=== PATIENT | male | born 1950 | race Caucasian/White ===

== ENCOUNTER 2019-03-03 15:13 | Inpatient (IN) | payer BC, OTHER ==
--- NOTE | 2019-03-03 16:12 | PDOC ---
History of Present Illness - General Chief Complaint: Difficulty with Vision Stated Complaint: BLURRY VISION Time Seen by Provider: 03/03/19 15:54 History Source: Patient Exam Limitations: No Limitations - History of Present Illness Initial Comments: 03/03/19 16:40 68 yo M with no past medical history presents to the emergency department with inability to move left eye for the past 3 days. Per the patient, he was struck in the head by a single plywood on 02/21/2019 while working in the yard on the right side. The patient 3 days ago had atraumatic sudden onset of diplopia and inability to move his left eye inward on horizontal gaze. Denies pain. Denies the following: fevers, chills, SOB, chest pain, visual changes, headaches, ears/ nose/throat pain, abdominal pain, dysuria, hematuria, and leg pain/swelling. allergies: NKDA meds: none tPA Exclusion checklist 3-4.5h - Time Elapsed Date last known well: 02/28/19 Time last known well: 12:00 Elaspsed time: 4 Day(s) and 23 Hour(s) and 1 Minutes - Thrombolytic Therapy Candidate Is patient eligible for thrombolytic therapy: No - Exclusion Criteria 3-4.5 hr SBP greater than 185 or DBP greater than 110mmHg despite tx: No Recent IC/spinal surgery,head trauma or stroke<3mos.: No Hx IC hemorrhage, IC neoplasm, AV malformation or aneurysm: No Active internal bleeding: No Blding diathesis(low plt ct, inc PTT,INR>1.7 or use of NOAC): No Symptoms suggest subarachnoid hemorrhage: No CT demonstrates multilobar infarct(>1/3 cerebral hemiphere): No Arterial puncture at noncompressible site in previous 7 days: No Blood glucose concentration less than 50mg/dL (2.7mmol/L): No - Relative Exclusion Criteria 3-4.5 hr Life expectancy <1 yr or severe co-morbid illness: No : No Patient/family refused: No Rapid improvement: No Stroke severity too mild: Yes Recent acute WI (w/in previous 3 months): No Seizure at onset with postictal residual neuro impairments: No Major surgery or serious trauma w/in previous 14 days: No Recent GI or hemorrhage (w/in previous 21 days): No - Add'l Relative Exclusion 3-4.5 hr Age > 80: No Hx of both diabetes AND prior ischemic stroke: No Taking an oral anticoagulant regardless of INR: No NIHSS >25: No - Ineligibility reason(s) Reasons No tPA given: Outside of window - delayed arrival NIH Stroke Scale - Last Known Well Date/Time & Onset Date Last Known Well: 02/28/19 Time Last Known Well: 12:00 - Initial Evaluation Level of consciousness: Alert Ask patient the month and their age: Answers both correctly Ask patient to open & close eyes; make fist and let go: Obeys both correctly Best gaze (horizontal eye movement): Partial gaze palsy Visual field testing: No visual field loss Facial paresis (Show teeth/raise eyebrows/close eyes tight): Normal symmetrical movement Motor Function: Left Arm: Normal Motor Function: Right Arm: Normal (extends arm 90 (or 45) degrees for 10 seconds without drift Motor Function: Left Leg: Normal (extends leg 30 degrees for 5 seconds without drift) Motor Function: Right Leg: Normal (extends leg 30 degrees for 5 seconds without drift) Limb Ataxia: No ataxia Sensory(Use pinprick test arms,legs,trunk,face/side to side): Normal Best language (Describe picture, name items, read sentences): No Aphasia Dysarthria (read several words): Normal articulation Extinction and Inattention: No abnormality - Total Score NIH Stroke Scale Score: 1 Past History - Past Medical History Allergies/Adverse Reactions: Allergies Allergy/AdvReac Type Severity Reaction Status Date / Time No Known Allergies Allergy Verified 03/03/19 15:21 Home Medications: Ambulatory Orders Aspirin Coated [Ecotrin -] 81 mg PO DAILY #30 tablet.ec 03/04/19 Atorvastatin Ca [Lipitor] 40 mg PO HS #30 tablet 03/04/19 Lancets 1 each MC BID #100 each 03/04/19 Miscellaneous Medical Supply [Glucometer Device] 1 each SQ ASDIR #1 kit Miscellaneous Medical Supply [Glucometer Test Strips #100] 1 each SQ ASDIR #1 box 03/04/19 Sitagliptin Phosphate [Januvia -] 25 mg PO DAILY@0700 #30 tab 03/04/19 metFORMIN HCL [Glucophage -] 500 mg PO BID@0700,1630 #60 tablet 03/04/19 COPD: No - Psycho Social/Smoking Cessation Hx Smoking History: Never smoked Review of Systems - Review of Systems Able to Perform ROS?: Yes Is the patient limited Indonesian proficient: No Constitutional: No: Chills, Diaphoresis, Fever, Weakness HEENTM: Yes: Recent change in vision, Double Vision. No: Eye Pain, Blurred Vision, Tearing, Cataracts, Ear Pain, Ocular Prothesis, Ear Discharge, Nose Pain , Nose Congestion, Throat Pain, Mouth Pain Respiratory: No: Cough, Shortness of Breath, Hemoptysis Cardiac (ROS): No: Chest Pain, Lightheadedness, Palpitations ABD/GI: No: Constipated, Diarrhea, Nausea, Rectal Bleeding, Vomiting, Tarry Stools : No: Dysuria, Hematuria Musculoskeletal: No: Back Pain, Joint Pain, Neck Pain Integumentary: No: Bruising, Erythema, Rash Neurological: No: Headache, Numbness, Tingling, Tremors, Unsteady Gait, Ataxia Psychiatric: No: Change in Appetite Endocrine: No: Unexplained Weight Gain Hematologic/Lymphatic: No: Anemia *Physical Exam - Vital Signs Last Vital Signs Temp Pulse Resp BP Pulse Ox 98.1 F 111 H 22 H 139/79 98 03/03/19 15:22 03/03/19 15:22 03/03/19 15:22 03/03/19 15:22 03/03/19 15:40 - Physical Exam General Appearance: Yes: Nourished, Appropriately Dressed. No: Apparent Distress, Intoxicated HEENT: positive: NAIMA, Normal ENT Inspection, Normal Voice, Symmetrical, TMs Normal, Pharynx Normal, Hearing Grossly Normal. negative: EOMI (unable to adduct left eye past midline. left eye rests abducted and down. ), Pale Conjunctivae, Scleral Icterus (R), Scleral Icterus (L), Muffled/Hoarse voice, Pharyngeal Erythema, Tonsillar Exudate, Tonsillar Erythema, Nasal Congestion, Rhinorrhea, Excessive drooling Neck: positive: Trachea midline, Supple. negative: Tender, Lymphadenopathy (R) , Lymphadenopathy (L), Tender lateral, Tender midline Respiratory/Chest: positive: Lungs Clear, Normal Breath Sounds. negative: Chest Tender, Respiratory Distress, Accessory Muscle Use, Rhonchi, Stridor, Wheezing Cardiovascular: positive: Regular Rhythm, S1, S2, Tachycardia. negative: Systolic Murmur Gastrointestinal/Abdominal: positive: Normal Bowel Sounds, Flat, Soft. negative : Tender Lymphatic: negative: Adenopathy Musculoskeletal: positive: Normal Inspection. negative: CVA Tenderness, Vertebral Tenderness Extremity: positive: Normal Capillary Refill, Normal Inspection, Normal Range of Motion. negative: Tender, Swelling, Calf Tenderness Integumentary: positive: Normal Color, Dry, Warm. negative: Swelling, Ecchymosis Neurologic: positive: Fully Oriented, Alert, Normal Mood/Affect, Normal Response , Motor Strength 5/5, EOM Palsy. negative: director of research II-XII NML intact (reference comments above. CN1,2, 4-12 grossly intact), Facial Droop, Sensory Deficit ED Treatment Course - LABORATORY CBC & Chemistry Diagram: 03/04/19 06:38 03/04/19 06:38 Medical Decision Making - Medical Decision Making 68 yo M with no past medical history presents to the emergency department with inability to move left eye for the past 3 days. Initial vitals: Initial Vital Signs Temp Pulse Resp BP Pulse Ox 98.1 F 111 H 22 H 139/79 98 03/03/19 15:22 03/03/19 15:22 03/03/19 15:22 03/03/19 15:22 03/03/19 15:22 Work up: CVA work up. Suspect cranial 3 nerve palsy based on physical examination. Will order CT head to rule out hemorrhagic infarct. Etiologies include cerebral infarct, midbrain infarct, diabetic ischemic lesion (denies hx of DM), aneuysm development. I spoke to Dr. Angulo and he recommends MRA and MRI of the brain. Patient to receive CVA work up for labs. Laboratory Tests 03/03/19 03/03/19 03/03/19 16:27 16:27 16:27 WBC 9.0 RBC 5.75 H Hgb 16.7 Hct 49.1 H MCV 85.4 MCH 29.1 MCHC 34.0 RDW 13.0 Plt Count 312 MPV 9.3 Absolute Neuts (auto) 5.3 Neutrophils % 58.5 Lymphocytes % 33.0 Monocytes % 7.0 Eosinophils % 1.0 Basophils % 0.5 Nucleated RBC % 0 PT with INR 10.80 INR 0.92 PTT (Actin FS) 30.5 Sodium Potassium Chloride Carbon Dioxide Anion Gap BUN Creatinine Est GFR (CKD-EPI)AfAm Est GFR (CKD-EPI)NonAf Random Glucose Calcium Total Bilirubin AST ALT Alkaline Phosphatase Creatine Kinase 71 Troponin I < 0.02 Total Protein Albumin Triglycerides 424 H Cholesterol Total LDL Cholesterol 194 H HDL Cholesterol 03/03/19 03/03/19 16:27 16:27 WBC RBC Hgb Hct MCV MCH MCHC RDW Plt Count MPV Absolute Neuts (auto) Neutrophils % Lymphocytes % Monocytes % Eosinophils % Basophils % Nucleated RBC % PT with INR INR PTT (Actin FS) Sodium 136 Potassium 3.8 Chloride 100 Carbon Dioxide 27 Anion Gap 10 BUN 16.0 Creatinine 1.4 H Est GFR (CKD-EPI)AfAm 60.25 Est GFR (CKD-EPI)NonAf 51.99 Random Glucose 404 H* Calcium 9.5 Total Bilirubin 0.4 AST 17 ALT 30 Alkaline Phosphatase 142 H Creatine Kinase Troponin I Total Protein 7.5 Albumin 3.8 Triglycerides Cholesterol 291 H Total LDL Cholesterol HDL Cholesterol 39 L Patient was signed out to Dr. Boyce for further work up and management. Pending MRI and MRA of brain CT head was negative for acute intracranial processes. Discharge - Discharge Information Problems reviewed: Yes Clinical Impression/Diagnosis: WCIHO (acute kidney injury), Hyperglycemia, CN III palsy, left eye - Follow up/Referral - Patient Discharge Instructions - Post Discharge Activity
[2019-03-03] MEDS ORDERED: SODIUM CHLORIDE 1,000 ML IV SCH ×2 (16:30→21:20)
[2019-03-03 16:50] LABS: BASO % 0.5 % (0-2.0); HEMATOCRIT 49.1 % (35.4-49); HEMOGLOBIN 16.7 GM/dL (11.7-16.9); MCH 29.1 pg (25.7-33.7); MEAN CELL VOLUME 85.4 fl (80-96); MEAN PLT VOLUME 9.3 fl (7.5-11.1); NEUT % 58.5 % (42.8-82.8); PLATELET COUNT 312 K/MM3 (134-434); RBC 5.75 M/mm3 (4.00-5.60)
[2019-03-03 17:05] LABS: INR 0.92 (0.83-1.09); PROTHROMBIN TIME (PATIENT) 10.8 SEC (9.7-13.0)
[2019-03-03 17:07] LABS: ACTIVATED PTT 30.5 SECONDS (25.2-36.5)
--- NOTE | 2019-03-03 17:23 | PDOC ---
Attending Attestation - Resident Resident Name: MichealRonn - ED Attending Attestation I have performed the following: I have examined & evaluated the patient, The case was reviewed & discussed with the resident, I agree w/resident's findings & plan, Exceptions are as noted - HPI HPI: 03/03/19 16:46 Mr. Stearns is a 68 yo M who presents ambulatory to the ER with his due to visual changes Per patient he has no past medical history and takes no medications The patients history began on Feb 21 when he was cleaning the back yard His right face/eye was struck by a piece of falling plywood. He had no visual complaints at that time Three days ago, pt began noting diplopia and "stars in his vision" Because his symptoms Pt denies headache No focal weakness or numbness - Physicial Exam PE: 03/03/19 17:23 GENERAL: The patient is in no acute distress. ENT: Ears normal, nares patent, oropharynx clear without exudates. Moist mucous membranes. NECK: Normal range of motion, supple LUNGS: Breath sounds equal, clear to auscultation bilaterally. No wheezes, and no crackles. HEART:Regular rate and rhythm, normal S1 and S2 without murmur, rub or gallop. ABDOMEN: Soft, nontender, normoactive bowel sounds. EXTREMITIES: Normal range of motion, no edema. NEUROLOGICAL: Cranial nerves II through XII grossly intact. Normal speech. No focal neurological deficits. Left eye: Ptosis, externally deviated, SKIN: Warm, Dry, normal turgor, no rashes or lesions noted. - Medical Decision Making 03/03/19 17:25 Laboratory Tests 03/03/19 03/03/19 16:27 16:27 WBC 9.0 Hgb 16.7 Hct 49.1 H Plt Count 312 INR 0.[address] Merritt Will do stroke work-up We will plan to admit Signed out to overnight attending
[2019-03-03 17:27] LABS: LDL CHOLESTEROL (ONLY SJRH) 194 mg/dL (5-100); TRIGLYCERIDES 424 mg/dL (0-150)
[2019-03-03 17:32] LABS: ALBUMIN 3.8 g/dl (3.4-5.0); BILIRUBIN,TOTAL 0.4 mg/dL (0.2-1); CALCIUM 9.5 mg/dL (8.5-10.1); CREATININE 1.4 mg/dL (0.55-1.3); POTASSIUM 3.8 mmol/L (3.5-5.1); TOT PROT 7.5 g/dl (6.4-8.2)
[2019-03-03] MEDS ORDERED: SODIUM CHLORIDE 1,000 ML IV STA (18:55)
[2019-03-03] MEDS ORDERED: ASPIRIN 81 MG CHEWABLE TABLETS PO ONE (19:07)
--- NOTE | 2019-03-03 20:02 | PDOC ---
*Physical Exam - Vital Signs Last Vital Signs Temp Pulse Resp BP Pulse Ox 98.1 F 110 H 18 128/66 100 03/03/19 15:22 03/03/19 17:40 03/03/19 17:40 03/03/19 17:40 03/03/19 17:40 - Physical Exam General Appearance: Yes: Nourished, Appropriately Dressed. No: Apparent Distress HEENT: positive: NAIMA, Normal ENT Inspection, Normal Voice, TMs Normal. negative: EOMI Neck: positive: Supple Respiratory/Chest: positive: Lungs Clear, Normal Breath Sounds Cardiovascular: positive: Regular Rhythm, S1, S2, Tachycardia Vascular Pulses: Dorsalis-Pedis (R): 2+, Doralis-Pedis (L): 2+ Gastrointestinal/Abdominal: positive: Soft Rectal Exam: positive: deferred Lymphatic: negative: Adenopathy Musculoskeletal: positive: Normal Inspection. negative: CVA Tenderness Extremity: positive: Normal Capillary Refill, Normal Inspection, Normal Range of Motion Integumentary: positive: Normal Color, Dry, Warm Neurologic: positive: Fully Oriented, Alert, Normal Mood/Affect, Normal Response , Motor Strength 5/5, Abnormal Cranial NS (CN 3 in left eye), EOM Palsy. 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 NML intact, Facial Droop, Numbness, Sensory Deficit, Finger to Nose, Confused, Disoriented, Depressed Affect, Babinski, Other ED Treatment Course - LABORATORY CBC & Chemistry Diagram: 03/03/19 16:27 03/03/19 16:27 - ADDITIONAL ORDERS Additional order review: Laboratory Results 03/03/19 03/03/19 03/03/19 16:27 16:27 16:27 PT with INR INR PTT (Actin FS) Sodium 136 Potassium 3.8 Chloride 100 Carbon Dioxide 27 Anion Gap 10 BUN 16.0 Creatinine 1.4 H Est GFR (CKD-EPI)AfAm 60.25 Est GFR (CKD-EPI)NonAf 51.99 Random Glucose 404 H* Calcium 9.5 Total Bilirubin 0.4 AST 17 ALT 30 Alkaline Phosphatase 142 H Creatine Kinase 71 Troponin I < 0.02 Total Protein 7.5 Albumin 3.8 Triglycerides 424 H Cholesterol 291 H Total LDL Cholesterol 194 H HDL Cholesterol 39 L 03/03/19 16:27 PT with INR 10.80 INR 0.92 PTT (Actin FS) 30.5 Sodium Potassium Chloride Carbon Dioxide Anion Gap BUN Creatinine Est GFR (CKD-EPI)AfAm Est GFR (CKD-EPI)NonAf Random Glucose Calcium Total Bilirubin AST ALT Alkaline Phosphatase Creatine Kinase Troponin I Total Protein Albumin Triglycerides Cholesterol Total LDL Cholesterol HDL Cholesterol 03/03/19 16:27 RBC 5.75 H MCV 85.4 MCHC 34.0 RDW 13.0 MPV 9.3 Neutrophils % 58.5 Lymphocytes % 33.0 Monocytes % 7.0 Eosinophils % 1.0 Basophils % 0.5 - RADIOLOGY Radiograph Interpretation: MRI: THIS IS A PRELIMINARY REPORT FROM [facility] DATE OF SERVICE: 2019-03-03 18:36:58 IMAGES: [id number] EXAM: 1. MRI brain without IV contrast. 2. MR angiogram of the head without IV contrast. There are no prior studies available for comparison. Technique: Multiplanar multisequence MRI images of the brain were obtained without IV contrast. Then 3-D [id number] MRI images of the [place] were obtained. In addition, 3-D reconstruction of the [place] and its major branches were obtained for increase anatomic detail and diagnostic interpretation. Findings: When comparing the diffusion-weighted images to the ADC map there are no areas of restricted intracranial diffusion to suggest acute infarct. There is no abnormal signal intensity within the bilateral cerebral hemispheres , bilateral cerebellar hemispheres, or the brainstem. There is no evidence of mass or midline shift. There is no evidence of intra-or extra-axial hemorrhage. The ventricles and basilar cisterns are within normal limits. The paranasal sinuses and mastoid air cells are clear. The bilateral orbits are within normal limits. The visualized portions of the bilateral internal carotid arteries are patent without focal abnormality or aneurysm. The visualized portions of the bilateral vertebral arteries are patent and codominant. The basilar artery is patent without focal abnormality or aneurysm. The bilateral posterior cerebral arteries are patent without focal abnormality or aneurysm. The bilateral posterior communicating arteries are patent without focal abnormality or aneurysm. The right middle cerebral artery is patent without focal abnormality or aneurysm. The left middle cerebral artery is patent without focal upper moderate aneurysm. The bilateral anterior cerebral arteries are patent without focal abnormality or aneurysm. The anterior indicating artery appears patent. The extraocular muscles are unremarkable. Impression: 1. Normal MRI of the brain. 2. Normal MR angiogram of the head/[place]. Medical Decision Making - Medical Decision Making Patient signed out to me from Dr. [place]s pending labs and an MRI to be admitted for WICHO, hyperglycemia, and rule out stroke MRI: Impression: 1. Normal MRI of the brain. 2. Normal MR angiogram of the head/[place]. Labs: elevated glucose, probable undiagnosed diabetes, elevated Cr - sugestive of WICHO Plan: admit to hospital for WICHO, elevated glucose, and neuro evaluation Discharge - Discharge Information Problems reviewed: Yes Clinical Impression/Diagnosis: WICHO (acute kidney injury), Hyperglycemia, CN III palsy, left eye Condition: Stable - Admission Yes - Follow up/Referral Referrals: Magdaleno Bradford MD [Primary Care Provider] - - Patient Discharge Instructions - Post Discharge Activity
[2019-03-03] MEDS ORDERED: ASPIRIN 81 MG CHEWABLE TABLETS ONE (20:15)
[2019-03-03] MEDS ORDERED: INSULIN SLIDING SCALE (NOVOLOG) 1 VIAL SQ STA (21:16)
[2019-03-03] MEDS ORDERED: INSULIN (NOVOLOG) ASPART 100 UNITS/ML 10ML VIAL SQ STA (21:27)
--- NOTE | 2019-03-03 21:37 | HP ---
CHIEF COMPLAINT: left eye with double vision and visual changes PCP:Dr. Bradford HISTORY OF PRESENT ILLNESS: 68 year old male with no past medical or cardiac history who reports double vision/visual changes to his left eye for the past 3 days. He reported 3 days ago he had atraumatic sudden onset of diplopia and inability to move his left eye inward on lateral gaze. He reports he was hit by plywood to his right eye this past Saturday. He denied headache, slurred speech, weakness and moving upper an lower extremities bilaterally, no facial grimace or droop, and reports able to see out of his left eye. Upon evaluation he was found to have hyperglycemia with normal anion gap, UA w/ 1+ ketones, acute renal insufficiency(creatinine 1.4) and abnormal left eye gaze with visual changes. CT scan of head and MRI of brain showed no acute findings. Neurology - Dr. Gonzalez was consulted and will evaluate patient in the morning. Recent Travel: denies PAST MEDICAL HISTORY: deneis PAST SURGICAL HISTORY: denies Social History: Smoking:no Alcohol:no Drugs: no Allergies No Known Allergies Allergy (Verified 03/03/19 15:21) HOME MEDICATIONS: Home Medications Medication Instructions Recorded NK [No Known Home Medication] 03/03/19 REVIEW OF SYSTEMS CONSTITUTIONAL: Absent: fever, chills, diaphoresis, generalized weakness, malaise, loss of appetite, weight change HEENT: Absent: rhinorrhea, nasal congestion, throat pain, throat swelling, difficulty swallowing, mouth swelling, ear pain, eye pain, visual changes CARDIOVASCULAR: Absent: chest pain, syncope, palpitations, irregular heart rate, lightheadedness , peripheral edema RESPIRATORY: Absent: cough, shortness of breath, dyspnea with exertion, orthopnea, wheezing, stridor, hemoptysis GASTROINTESTINAL: Absent: abdominal pain, abdominal distension, nausea, vomiting, diarrhea, constipation, melena, hematochezia GENITOURINARY: Absent: dysuria, frequency, urgency, hesitancy, hematuria, flank pain, genital pain MUSCULOSKELETAL: Absent: myalgia, arthralgia, joint swelling, back pain, neck pain SKIN: Absent: rash, itching, pallor HEMATOLOGIC/IMMUNOLOGIC: Absent: easy bleeding, easy bruising, lymphadenopathy, frequent infections ENDOCRINE: Absent: unexplained weight gain, unexplained weight loss, heat intolerance, cold intolerance NEUROLOGIC: Absent: headache, focal weakness or paresthesias, dizziness, unsteady gait, seizure, mental status changes, bladder or bowel incontinence, left eye with double vision, denies blindness PSYCHIATRIC: Absent: anxiety, depression, suicidal or homicidal ideation, hallucinations. PHYSICAL EXAMINATION Vital Signs - 24 hr 03/03/19 03/03/19 03/03/19 15:22 15:40 16:21 Temperature 98.1 F Pulse Rate 111 H Pulse Rate [ 120 H Left Radial] Respiratory 22 H 18 Rate Blood Pressure 139/79 Blood Pressure 123/82 [Right Arm] O2 Sat by Pulse 98 98 100 Oximetry (%) 03/03/19 17:40 Temperature Pulse Rate Pulse Rate [ 110 H Left Radial] Respiratory 18 Rate Blood Pressure Blood Pressure 128/66 [Right Arm] O2 Sat by Pulse 100 Oximetry (%) GENERAL: awake, alert, and fully oriented no acute distress. HEAD: normal EYES: left eye abnormal with limited movement EARS, NOSE, THROAT: ears normal, nares patent, oropharynx clear NECK: normal LUNGS: breath sounds equal clear to auscultation bilaterally no wheezes no crackles no accessory muscle use HEART: regular rate and rhythm normal S1 and S2 ABDOMEN: soft, nontender, not distended, normoactive bowel sounds MUSCULOSKELETAL: normal range of motion at all joints UPPER EXTREMITIES: 2+ pulses, warm, well-perfused LOWER EXTREMITIES: 2+ pulses, warm, well-perfused NEUROLOGICAL:normal speech no facial grimace/droop moving upper and lower extremities, inability to move his left eye inward on lateral gaze PSYCHIATRIC: cooperative SKIN: warm dry normal turgor no rashes or lesions noted Laboratory Results - last 24 hr 03/03/19 03/03/19 03/03/19 16:27 16:27 16:27 WBC 9.0 RBC 5.75 H Hgb 16.7 Hct 49.1 H MCV 85.4 MCH 29.1 MCHC 34.0 RDW 13.0 Plt Count 312 MPV 9.3 Absolute Neuts (auto) 5.3 Neutrophils % 58.5 Lymphocytes % 33.0 Monocytes % 7.0 Eosinophils % 1.0 Basophils % 0.5 Nucleated RBC % 0 PT with INR 10.80 INR 0.92 PTT (Actin FS) 30.5 Sodium Potassium Chloride Carbon Dioxide Anion Gap BUN Creatinine Est GFR (CKD-EPI)AfAm Est GFR (CKD-EPI)NonAf POC Glucometer Random Glucose Calcium Total Bilirubin AST ALT Alkaline Phosphatase Creatine Kinase 71 Troponin I < 0.02 Total Protein Albumin Triglycerides 424 H Cholesterol Total LDL Cholesterol 194 H HDL Cholesterol 03/03/19 03/03/19 03/03/19 16:27 16:27 21:03 WBC RBC Hgb Hct MCV MCH MCHC RDW Plt Count MPV Absolute Neuts (auto) Neutrophils % Lymphocytes % Monocytes % Eosinophils % Basophils % Nucleated RBC % PT with INR INR PTT (Actin FS) Sodium 136 Potassium 3.8 Chloride 100 Carbon Dioxide 27 Anion Gap 10 BUN 16.0 Creatinine 1.4 H Est GFR (CKD-EPI)AfAm 60.25 Est GFR (CKD-EPI)NonAf 51.99 POC Glucometer 244 Random Glucose 404 H* Calcium 9.5 Total Bilirubin 0.4 AST 17 ALT 30 Alkaline Phosphatase 142 H Creatine Kinase Troponin I Total Protein 7.5 Albumin 3.8 Triglycerides Cholesterol 291 H Total LDL Cholesterol HDL Cholesterol 39 L 03/03/19 21:05 WBC RBC Hgb Hct MCV MCH MCHC RDW Plt Count MPV Absolute Neuts (auto) Neutrophils % Lymphocytes % Monocytes % Eosinophils % Basophils % Nucleated RBC % PT with INR INR PTT (Actin FS) Sodium Potassium Chloride Carbon Dioxide Anion Gap BUN Creatinine Est GFR (CKD-EPI)AfAm Est GFR (CKD-EPI)NonAf POC Glucometer 338 Random Glucose Calcium Total Bilirubin AST ALT Alkaline Phosphatase Creatine Kinase Troponin I Total Protein Albumin Triglycerides Cholesterol Total LDL Cholesterol HDL Cholesterol ASSESSMENT/PLAN: 68 year old male with no past medical or cardiac history presents with double vision/visual changes to his left eye. Workup with CT scan of head and MRA of head was unremarkable.He has no weakness, moving upper and lower extremities bilaterally, no slurred speech,facial grimace or droop. #1 Left Eye Visual Disturbance/Left Eye Palsy Workup negative for stroke Neurology- Dr. Montiel consulted #2 Hyperglycemia(Likely New Diagnosis of Diabetes Mellitus) Anoin gap 10, UA w/ 1+ ketones BGM q6hour Novolin Insulin as per sliding scale ADA diet Check hemoglobin a1c When renal studies improve will benefit being on arlette inhibitor Endocrine consulted- Dr. Lay #3 Acute Renal Insufficiency(likely diabetic nephropathy) Creatinine 1.4 Continue with NS at 75cc/hr Repeat BMP in am #4 Hyperlipidemia TC 291, HDL 39, triglycerides 434 Atorvastatin 40 mg added Baby aspirin added FEN IVF NS at 75cc/hr Monitor electrolytes closely ADA, low fat heart healthy diet DVT TEDS Visit type - Emergency Visit Emergency Visit: Yes ED Registration Date: 03/03/19 Care time: The patient presented to the Emergency Department on the above date and was hospitalized for further evaluation of their emergent condition. - New Patient This patient is new to me today: Yes Date on this admission: 03/04/19 - Critical Care Critical Care patient: No
[2019-03-03 22:10] LABS: PH,URINE 6.5 (5.0-8.0); URINE APPEARANCE CLEAR; URINE BILIRUBIN NEGATIVE (NEGATIVE); URINE COLOR YELLOW; URINE GLUCOSE (UA) 3+ (NEGATIVE); URINE KETONE 1+ (NEGATIVE); URINE LEUK ESTERASE NEGATIVE (NEGATIVE); URINE NITRITE NEGATIVE (NEGATIVE); URINE PROTEIN TRACE (NEGATIVE); URINE UROBILINOGEN 0.2 mg/dL (0.2-1.0)
[2019-03-04 03:00] VITALS: BMI 25.0
[2019-03-04] MEDS ORDERED: INSULIN SLIDING SCALE (NOVOLOG) 1 VIAL SQ SCH (07:00)
--- NOTE | 2019-03-04 07:58 | CON.NEURO ---
Consult - Alcohol/Substance Use Hx Alcohol Use: No - Smoking History Smoking history: Never smoked Have you smoked in the past 12 months: No Home Medications - Allergies Allergies/Adverse Reactions: Allergies Allergy/AdvReac Type Severity Reaction Status Date / Time No Known Allergies Allergy Verified 03/03/19 15:21 - Home Medications Home Medications: Ambulatory Orders NK [No Known Home Medication] 03/03/19 Physical Exam-Neuro Vital Signs: Vital Signs Temperature 98.2 F 03/04/19 05:30 Pulse Rate 91 H 03/04/19 05:30 Respiratory Rate 20 03/04/19 05:30 Blood Pressure 131/80 03/04/19 05:30 O2 Sat by Pulse Oximetry (%) 98 03/04/19 02:50 Labs: CBC, BMP 03/03/19 16:27 03/03/19 16:27 INR, PTT INR 0.92 (0.83-1.09) 03/03/19 16:27 Assessment/Plan cc Left eye droopiness and difficulty moving eye HPI 68 year old male history of double visiona nd blurring of vision for three days before coming to [facility]. Patient has somthing hit his head on right eye. Patient denies any symptoms on left side. Patient had ct head it was normal, and mri of brain and mra of brain is pending. He is found to have new onset DM and Diabetic Nephropathy. He denies any other focal neurological symptoms. 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 Allergies No Known Allergies Allergy (Verified 03/03/19 15:21) HOME MEDICATIONS: Home Medications Medication Instructions Recorded NK [No Known Home Medication] 03/03/19 NEUROLOGICAL EXAMINATION Alert oriented x 3, speech is normal, neck is supple , afebrile vss , left eye is deviated to down and out and ptosis is present and pupils reactive motor 5/5 all ext sensation is normal gait and coordination is normal ct head i sunrmearkable Assessment/Plan Left third nerve palsy, most likley diabetic ischemic lesion, unlikley to be aneurysm Plan: continue aspirin and statin - pateint can be discharged home once mri of brain and mra of faustino is unremarkable - life style modifications , diabetic control - follow up outpatient Thanking you so much Jaun Angulo MD
[2019-03-04 08:07] LABS: HEMATOCRIT 45.3 % (35.4-49); HEMOGLOBIN 15.3 GM/dL (11.7-16.9); MCHC 33.8 g/dl (32.0-35.9); MEAN CELL VOLUME 85.7 fl (80-96); MEAN PLT VOLUME 9.3 fl (7.5-11.1); PLATELET COUNT 272 K/MM3 (134-434); RBC 5.28 M/mm3 (4.00-5.60); RDW 13.2 % (11.9-15.9); WHITE BLOOD COUNT 7.6 K/mm3 (4.0-10.0)
[2019-03-04 08:37] LABS: BLOOD UREA NITROGEN 14.6 mg/dL (7-18); CREATININE 0.8 mg/dL (0.55-1.3); POTASSIUM 3.9 mmol/L (3.5-5.1)
[2019-03-04] MEDS ORDERED: ASPIRIN COATED 81 MG TABLET.EC PO SCH (10:00)
--- NOTE | 2019-03-04 10:40 | EKG ---
Test Reason : Blood Pressure : / mmHG Vent. Rate : 134 BPM Atrial Rate : 134 BPM P-R Int : 150 ms QRS Dur : 098 ms QT Int : 284 ms P-R-T Axes : 049 208 038 degrees QTc Int : 424 ms SINUS TACHYCARDIA POSSIBLE LEFT ATRIAL ENLARGEMENT RIGHT SUPERIOR AXIS DEVIATION INCOMPLETE RIGHT BUNDLE BRANCH BLOCK , PLUS RIGHT VENTRICULAR HYPERTROPHY INFERIOR INFARCT , AGE UNDETERMINED ABNORMAL ECG NO PREVIOUS ECGS AVAILABLE Confirmed by BERTHA DOMÍNGUEZ, IGGY ([id number]) on 03/04/2019 10:40:11 AM Referred By: Confirmed By:IGGY STONE MD
--- NOTE | 2019-03-04 10:54 | DS ---
Physical Examination Vital Signs: Vital Signs Temperature 98.2 F 03/04/19 05:30 Pulse Rate 91 H 03/04/19 05:30 Respiratory Rate 20 03/04/19 05:30 Blood Pressure 131/80 03/04/19 05:30 O2 Sat by Pulse Oximetry (%) 98 03/04/19 02:50 Constitutional: Yes: No Distress, Calm Eyes: Yes: Ptosis (left) Cardiovascular: Yes: Regular Rate and Rhythm Respiratory: Yes: CTA Bilaterally Gastrointestinal: Yes: Normal Bowel Sounds, Soft, Abdomen, Obese. No: Tenderness Edema: No Labs: CBC, BMP 03/04/19 06:38 03/04/19 06:38 Discharge Summary Problems reviewed: Yes Reason For Visit: ACUTE KIDNEY INJURY,HYPERGLYCEMIA Current Active Problems WICHO (acute kidney injury) (Acute) CN III palsy, left eye (Acute) Hyperglycemia (Acute) Hospital Course: Admitted for left eye drooping , 3rd nerve palsy Found to have new onset DM Spoke with at bedside Pt had seen Ophthalmology-- normal exam per Pt started on oral meds renal function normal CT head negative MRI brain and MRA-- normal Seen by Neurology-- stable for dc home Needs Endocrinology follow up Follow up with PMD -- scheduled for this Saturday DM education provided Condition: Stable - Instructions Diet, Activity, Other Instructions: Pt was admitted here on 03/03/19-- he may return to work on 03/18/19 Referrals: Meenu Gupta MD [Staff Physician] - Magdaleno Bradford MD [Primary Care Provider] - Jaun Angulo MD [Staff Physician] - Disposition: HOME - Home Medications Comprehensive Discharge Medication List: Ambulatory Orders NK [No Known Home Medication] 03/03/19
[2019-03-04 12:24] VITALS: PULSE 95; TEMP 97.8
[2019-03-04 13:28] VITALS: BP 142/80
[2019-03-04] MEDS ORDERED: metFORMIN HCL 500 MG TABLET (FP) PO SCH (16:30)
[2019-03-04] MEDS ORDERED: ATORVASTATIN CA 40 MG TABLET (FP) PO SCH (22:00)
== END 2019-03-04 17:08 | disposition home or self-care (01) | DRG 638 ==
LOC: JER 15:13 → JERBED 20:20 → J6S 22:47
PROVIDERS: ADMIT Internal Medicine; ATTEND Internal Medicine
DX: E11.65 Type 2 diabetes mellitus with hyperglycemia (principal); N17.9 Acute kidney failure, unspecified; H49.02 Third [oculomotor] nerve palsy, left eye
CPT/HCPCS: 36415; 70450-TC; 70544-TC; 70551-TC; 80048; 80053; 81003; 82465; 82550; 82962; 83036; 83718; 83721; 84478; 84484; 85025; 85027; 85610; 85730; 86850; 86900; 86901; 93005; 93010; 99285-25; J7030